=== PATIENT | female | born 1940 | race Caucasian/White ===

== ENCOUNTER 2019-01-22 19:18 | Inpatient (IN) | payer MEDICARE ==
[~2019-01-22] VITALS: Ht 167.6 cm; Wt 104.9 kg
--- NOTE | 2019-01-22 19:46 | PHYS DOC ---
Past History Past Medical History: Anxiety, Dementia, Depression, GERD, High Cholesterol, Hypertension, Stroke Smoking: Non-smoker Alcohol Use: None Drug Use: None Adult General Chief Complaint Chief Complaint: MEDICAL CLEARANCE HPI HPI Patient is a 78-year-old female brought in for clearance for [facility]. She has been having verbal outbursts, vulgar, disruptive to the unit. She is throwing water at another resident where she resides. She is resistive to care at times. She has been treated with increasing Seroquel and adjusting medications but this has failed to achieve desired outcomes. History is limited from the patient due to her history of dementia.[] Review of Systems Review of Systems Constitutional: Denies fever or chills [] Eyes: Denies change in visual acuity, redness, or eye pain [] HENT: Denies nasal congestion or sore throat [] Respiratory: Denies cough or shortness of breath [] Cardiovascular: No chest pain or palpitations[] GI: Denies abdominal pain, nausea, vomiting, bloody stools or diarrhea [] : Denies dysuria or hematuria [] Musculoskeletal: Denies back pain or joint pain [] Integument: Denies rash or skin lesions [] Neurologic: Denies headache, focal weakness or sensory changes [] Endocrine: Denies polyuria or polydipsia [] All other systems were reviewed and found to be within normal limits, except as documented in this note. Physical Exam Physical Exam Constitutional: Well developed, well nourished, no acute distress, non-toxic appearance. [] HENT: Normocephalic, atraumatic, bilateral external ears normal, oropharynx moist, no oral exudates, nose normal. [] Eyes: PERRLA, EOMI, conjunctiva normal, no discharge. [] Neck: Normal range of motion, no tenderness, supple, no stridor. [] Cardiovascular:Heart rate regular rhythm, no murmur [] Lungs & Thorax: Bilateral breath sounds clear to auscultation [] Abdomen: Bowel sounds normal, soft, no tenderness, no masses, no pulsatile masses. [] Skin: Warm, dry, no erythema, no rash. [] Back: No tenderness, no CVA tenderness. [] Extremities: No tenderness, no cyanosis, no clubbing, ROM intact, no edema. [] Neurologic: Alert and oriented X 2person and place, hospital, normal motor function, normal sensory function, no focal deficits noted. [] Psychologic: Affect flat, mood normal. [] Current Patient Data Vital Signs Vital Signs Date Time Temp Pulse Resp B/P (MAP) Pulse Ox O2 Delivery O2 Flow Rate FiO2 01/22/19 19:18 97.7 89 22 159/100 (119) 95 Room Air EKG EKG EKG shows a sinus rhythm at 86 bpm, left axis, no ST elevation. QTC of 465 ms. Interpreted by me at 1949. No old EKG available for comparison.[] Radiology/Procedures Radiology/Procedures [] Course & Med Decision Making Course & Med Decision Making Pertinent Labs and Imaging studies reviewed. (See chart for details) ED course: Patient arrived, was placed in bed, and tolerated exam well. Laboratory testing was obtained. She remained in good condition while in the emergency department. After return of laboratory testing, findings and plan were discussed with patient and family. All questions were answered. She was given initial dose of antibiotics for urinary tract infection. She was admitted in improved condition to [facility]. Medical decision making: Patient with change in behavior that is failing outpatient treatment. She appears to be medically cleared for [facility]. She also has evidence of urinary tract infection which is being addresse d with oral medication. She is nontoxic. No evidence of systemic infection.[] Dragon Disclaimer Dragon Disclaimer This electronic medical record was generated, in whole or in part, using a voice recognition dictation system. Departure Departure: Impression: Primary Impression: Neurocognitive disorder Additional Impressions: Depression Urinary tract infection Disposition: ADMITTED INPATIENT Admitting Physician: Other Condition: IMPROVED Referrals: SOFIA SALMON (PCP) Problem Qualifiers Additional Impressions: Depression Depression Type: major depressive disorder Major depression recurrence: unspecified whether recurrent Active/Remission status: remission status unspecified Qualified Codes: F32.9 - Major depressive disorder, single episode, unspecified Urinary tract infection Urinary tract infection type: site unspecified Hematuria presence: without hematuria Qualified Codes: N39.0 - Urinary tract infection, site not specified MADIHA YOUNG DO Jan 22, 2019 19:46
[2019-01-22 19:55] LABS: BASO % 1 % (0-3); EOS # 0.1 x10^3/uL (0.0-0.7); EOS % 2 % (0-3); HEMATOCRIT 38.8 % (36.0-47.0); HEMOGLOBIN 12.9 g/dL (12.0-15.5); LYMPH # 1.5 x10^3/uL (1.0-4.8); LYMPH % 34 % (24-48); MEAN CORPUSCULAR HEMOGLOBIN 30 pg (25-35); MEAN CORPUSCULAR HGB CONC 33 g/dL (31-37); MEAN CORPUSCULAR VOLUME 90 fL (79-100); MONO # 0.5 x10^3/uL (0.0-1.1); MONO % 11 % (0-9); NEUT # 2.3 x10^3uL (1.8-7.7); NEUT % 52 % (31-73); PLATELET COUNT 185 x10^3/uL (140-400); RED BLOOD COUNT 4.32 x10^6/uL (3.50-5.40); WHITE BLOOD COUNT 4.4 x10^3/uL (4.0-11.0)
[2019-01-22 20:12] LABS: ALBUMIN 3.7 g/dL (3.4-5.0); ALBUMIN/GLOBULIN RATIO 0.9 (1.0-1.7); CREATININE 1.3 mg/dL (0.6-1.0); GFR 39.6; MAGNESIUM 1.8 mg/dL (1.8-2.4); POTASSIUM 4.2 mmol/L (3.5-5.1); TOTAL BILIRUBIN 0.5 mg/dL (0.2-1.0)
[2019-01-22 20:31] LABS: BILIRUBIN,URINE NEG (NEG); CLARITY,URINE CLEAR; COLOR,URINE YELLOW; GLUCOSE,URINE NEG (NEG); NITRITE,URINE NEG (NEG); RBC,URINE OCC /HPF (0-2); UROBILINOGEN,URINE 0.2 mg/dL (0.2 mg/dL)
[2019-01-22 20:32] LABS: BACTERIA,URINE FEW /HPF (0-FEW); SQUAMOUS EPITHELIAL CELL,UR OCC /LPF
[2019-01-22] MEDS ORDERED: SMZ/TMP 800/160MG TABLET. PO ONE ×2 (20:42→21:15)
[2019-01-22] MEDS ORDERED: LOPE2TAB27 PO (23:06)
[2019-01-22] MEDS ORDERED: FLUO15CR2 TP (23:06)
[2019-01-22] MEDS ORDERED: CALC500T31 PO (23:06)
[2019-01-22] MEDS ORDERED: CLON1TAB11 PO (23:06)
[2019-01-22] MEDS ORDERED: ASPI1CPM9 PO (23:06)
[2019-01-22] MEDS ORDERED: ACET500T33 PO (23:06)
[2019-01-22] MEDS ORDERED: CARV25TA PO (23:06)
[2019-01-22] MEDS ORDERED: GUAI-295 PO (23:06)
[2019-01-22] MEDS ORDERED: OLAN5TAB9 PO (23:06)
[2019-01-22] MEDS ORDERED: LORA0.5T96 PO (23:06)
[2019-01-22] MEDS ORDERED: ACET325T9 PO (23:06)
[2019-01-22] MEDS ORDERED: ALBU2.5V8 IH (23:06)
[2019-01-22] MEDS ORDERED: HYDR200T71 PO (23:06)
[2019-01-22] MEDS ORDERED: CLON0.5T4 PO (23:06)
[2019-01-22] MEDS ORDERED: SULF1TAB23 PO (23:06)
[2019-01-22] MEDS ORDERED: BENZ100C PO (23:06)
[2019-01-22] MEDS ORDERED: SIMV40TA18 PO (23:06)
[2019-01-22] MEDS ORDERED: PANT40TA3 PO (23:06)
[2019-01-22] MEDS ORDERED: QUET200T4 PO (23:06)
[2019-01-22] MEDS ORDERED: GUAI600T47 PO (23:06)
[2019-01-22] MEDS ORDERED: CYAN50008 PO (23:06)
[2019-01-22] MEDS ORDERED: LISI-334 PO (23:06)
[2019-01-22] MEDS ORDERED: MAGN2400 PO (23:06)
[2019-01-22] MEDS ORDERED: AMLO5TAB10 PO (23:06)
[2019-01-22] MEDS ORDERED: ALBUTEROL SULFATE 2.5 MG/3 ML NEBU. IH PRN (23:15)
[2019-01-22] MEDS ORDERED: ACETAMINOPHEN 325 MG TABLET PO PRN (23:15)
[2019-01-22] MEDS ORDERED: LORazepam 0.5 MG TABLET PO PRN (23:15)
[2019-01-22] MEDS ORDERED: OLANZapine 5 MG TABLET PO PRN (23:15)
[2019-01-22] MEDS ORDERED: BENZONATATE 100 MG CAPSULE. PO PRN (23:15)
[2019-01-22] MEDS ORDERED: CALCIUM CARBONATE 500 MG TAB.CHEW PO PRN (23:15)
[2019-01-22] MEDS ORDERED: METHYL SALICYLATE/MENTHOL TOPICAL OINTMENT 57GM TUBE. TP PRN (23:15)
[2019-01-22] MEDS ORDERED: MAGNESIUM HYDROXIDE 2,400 MG/30 ML ORAL.SUSP. PO PRN (23:15)
[2019-01-22] MEDS ORDERED: MAG HYDROX/AL HYDROX/SIMETH 30 ML ORAL.SUSP PO PRN (23:15)
[2019-01-22] MEDS ORDERED: LOPERAMIDE 2 MG CAPSULE PO PRN (23:30)
[2019-01-22] MEDS ORDERED: C.DIFF MED SCREEN BY RX. MC ONE (23:30)
[2019-01-22] MEDS ORDERED: guaiFENesin/CODEINE 100mg/10mg 5 ML LIQUID PO PRN (23:30)
--- NOTE | 2019-01-22 23:34 | NUR ---
Admission Note with Justification for Admission to [facility] Patient admitted to [facility] for protective oversight for emergency stabilization of acute psychiatric crisis. Pt admitted from: LT Facility Mode of arrival: EMS Accompanied By: EMS/Family Precipitating behaviors that initiated intake and admission:Pt having verbal outbursts, vulgar disruptive to the unit, throwing water at a peer, restive to cares, agitated combative, threatening. Description of failure of out patient attempts at stabilization in previous setting list behavior and medication trials: Med adjustments were attempted but not successful. Behaviors and assessment findings upon admission: Angry, agitated, confused, demanding, rude, belligerent tells me to get out of her face and LEAVE her alone. Swats at staff that attempt to help her. Plan: Admit for protective oversight for adjustment and stabilization of medications, behaviors and mood. Intense treatment regimen including groups, medication adjustments, therapy, consistent regimen for ADL's, self care, and sleep hygiene. Daily monitoring by Inpatient staff, Psychiatry, and Medical Physician.
[2019-01-22 23:38] VITALS: BP 156/86
--- NOTE | 2019-01-23 03:59 | EKG ---
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
[2019-01-23 06:08] VITALS: BP 144/85
[2019-01-23] MEDS: CARVEDILOL 12.5 MG TABLET PO SCH ×2 (08:13→17:07)
[2019-01-23] MEDS: clonazePAM 1 MG TABLET PO SCH ×2 (08:13→13:09)
[2019-01-23] MEDS: ACETAMINOPHEN 500 MG TABLET PO SCH ×3 (08:13→20:39)
[2019-01-23] MEDS: PANTOPRAZOLE 40 MG TABLET. PO SCH (08:13)
[2019-01-23] MEDS: ASPIRIN/DIPYRIDAMOLE 200/25MG CAP.ER.12H PO SCH ×2 (08:13→20:39)
[2019-01-23] MEDS: LACTOBACILLUS RHAMNOSUS GG 1 CAPSULE. PO SCH ×2 (08:14→20:39)
[2019-01-23] MEDS: CYANOCOBALAMIN (VITAMIN B-12) 1,000 MCG TABLET. PO SCH (08:14)
[2019-01-23] MEDS: LISINOPRIL 20 MG TABLET PO SCH (08:14)
[2019-01-23] MEDS: QUEtiapine 100 MG TABLET. PO SCH ×3 (08:14→20:39)
[2019-01-23] MEDS: amLODIPine BESYLATE 5 MG TABLET PO SCH (08:15)
[2019-01-23] MEDS: HYDROXYCHLOROQUINE 200 MG TABLET PO SCH (08:19)
[2019-01-23] MEDS ORDERED: SMZ/TMP 400/80MG TABLET. PO SCH (09:00)
--- NOTE | 2019-01-23 09:00 | NUR ---
Pharmacy Medication Review S: Consulted for medication review re: C.diff Risk Assessment score of 5 O: MISTY BAPTISTE is a 78 year old with: Previous C.diff infection: No Previous hospitalization: No Recent antibiotics: Within 30 days Use of gastric acid suppressor: Yes Transfer from [place]/[facility]: Yes Current antibiotic regimen: SEPTRA DS- PHARMACY ADDED THE STOP DATE OF 01/27 THAT WAS IN THE [place] CHART Current acid suppression regimen: PROTONIX 40MG DAILY A: Patient has been identified as having risk factors for C.diff infection as noted above. P: Antibiotic Regimen recommendation made: Probiotic ordered: LACTOBACILLUS BID PPI changed to [id number]: NOTE LEFT ON UNIT FOR DR OCHOA TO REVIEW AND PHARMACY RECOMMENDS PEPCID 20MG DAILY OR HS. AILYN TORRES, 01/23/19 0901
[2019-01-23] MEDS: SMZ/TMP 800/160MG TABLET. PO SCH ×2 (12:20→20:39)
[2019-01-23 16:10] VITALS: BP 120/67
--- NOTE | 2019-01-23 17:02 | NUR ---
Patient is alert and oriented x 3, able to make wants and needs known and able to verbalize understanding of others. Patient has been cooperative with staff in all cares and medication administrations this shift. No negative moods or behaviors noted. Patient is eating dinner in dining room at this time.
[2019-01-23 20:07] LABS: THYROXINE 5.5 ug/dL (4.5-12.0)
--- NOTE | 2019-01-23 20:34 | PDOC ---
Exam Note: Wayne Note: Please also refer to the separate dictated note~for this date of service dictated separately. Discussed the patient with Nursing staff reviewed the chart.~Reviewed interim history and current functioning. Reviewed vital signs,~Labs/ Radiology~and current medications noted below. Continue current treatment with the changes noted in the dictated addendum note Assessment: Vital Signs/I&O: Vital Signs Date Time Temp Pulse Resp B/P (MAP) Pulse Ox O2 Delivery O2 Flow Rate FiO2 01/23/19 17:07 75 120/67 01/23/19 16:10 97.7 16 93 01/22/19 20:53 Room Air I & O 01/22/19 01/22/19 01/23/19 15:00 23:00 07:00 Intake Total 0 ml Balance 0 ml Current Medications: Meds: Current Medications Medications (Trade) Dose Ordered Sig/Kong Route PRN Reason Start Time Stop Time Status Last Admin Dose Admin Trimethoprim/ Sulfamethoxazole (Bactrim Ds) 1 tab 1X ONCE PO 01/22/19 21:15 01/22/19 21:16 DC 01/22/19 20:43 Acetaminophen (Tylenol) 500 mg TID PO 01/23/19 09:00 01/23/19 13:09 Amlodipine Besylate (Norvasc) 5 mg DAILY PO 01/23/19 09:00 01/23/19 08:15 Dipyridamole/ Aspirin (Aggrenox) 1 cap BID PO 01/23/19 09:00 01/23/19 08:13 Clonazepam (KlonoPIN) 1 mg BID92 PO 01/23/19 09:00 01/23/19 13:09 Lisinopril (Prinivil) 20 mg DAILY PO 01/23/19 09:00 01/23/19 08:14 Pantoprazole Sodium (Protonix) 40 mg DAILYAC PO 01/23/19 07:30 01/23/19 08:13 Carvedilol (Coreg) 12.5 mg BIDWMEALS PO 01/23/19 08:00 01/23/19 17:07 Cyanocobalamin (Vitamin B-12) 500 mcg DAILY PO 01/23/19 09:00 01/23/19 08:14 Quetiapine Fumarate (SEROquel) 200 mg TID PO 01/23/19 09:00 01/23/19 13:09 Lactobacillus Rhamnosus (Culturelle) 1 cap BID PO 01/23/19 09:00 01/23/19 08:14 Trimethoprim/ Sulfamethoxazole (Bactrim Ds) 1 tab BID PO 01/23/19 09:00 01/27/19 21:01 01/23/19 12:20 I have reviewed the current psychotropics carefully including drug interactions. Risk benefit ratio favors no change other than as noted in my dictated progress note. JESSEE WALL MD Jan 23, 2019 20:34
[2019-01-23 20:48] LABS: THYROID STIM HORMONE (TSH) 2.243 uIU/mL (0.358-3.740)
[2019-01-23] MEDS: ATORVASTATIN CALCIUM 20 MG TABLET PO SCH (21:00)
[2019-01-24 00:06] LABS: HEMOGLOBIN A1C 6.8 % (4.8-5.6)
--- NOTE | 2019-01-24 02:03 | NUR ---
Nsg Note: Patient was in day room at time of medication administration and assessments. Patient was calm, cooperative and compliant with cares. Patient was somewhat hypoverbal. No other notable behaviors at this time.
--- NOTE | 2019-01-24 03:22 | CONS ---
DATE OF CONSULTATION: 01/22/2019 REASON FOR CONSULTATION: Medical management. HISTORY OF PRESENT ILLNESS: The patient is a 78-year-old female patient, a resident at [facility] in [place] who was admitted on account of having verbal outbursts, throwing water on peers, valgus statement, resistive to care and agitated, combative, all this in a major neurocognitive disorder. She is here for inpatient psychiatric stabilization. PAST MEDICAL HISTORY: Significant for hypertension, hyperlipidemia, peripheral vascular disease, gastroesophageal reflux disease, osteoarthritis, and cerebrovascular accident. PAST PSYCHIATRIC HISTORY: Significant for dementia as well as anxiety and depression. ALLERGIES: She has no known drug allergies. MEDICATIONS: She is currently on following medications: She is on Bactrim DS 1 tablet twice a day for 7 days, hydroxychloroquine sulfate for Plaquenil 200 mg daily for lupus, albuterol sulfate 2 puffs every 4 hours, simvastatin 40 mg at bedtime. She is on Aggrenox twice a day for CVA prevention, carvedilol 12.5 mg twice a day with meal, amlodipine besylate 5 mg once a day, lisinopril 20 mg once a day, Tylenol 500 mg 3 times a day, Tylenol 650 mg every 6 hours as needed, clonazepam 1 mg twice a day, clonazepam 0.5 mg every 4 hours. She is on olanzapine 5 mg every hour as needed. She is on Seroquel 200 mg 3 times a day, lorazepam 0.5 mg every 8 hours, calcium carbonate 1000 mg once every 4 hours. FAMILY HISTORY: Noncontributory. SOCIAL HISTORY: She is , lives at the [facility]. She has 4 sons and 1 daughter. She does not smoke, drink alcohol or use any recreational drugs. REVIEW OF SYSTEMS: As per history of present illness. PHYSICAL EXAMINATION GENERAL: When I examined her, she was sitting comfortably in her chair, in no apparent respiratory distress, slightly pale, but no jaundice, cyanosis or thyromegaly. No jugular venous distention. No limb edema. VITAL SIGNS: Her heart rate was 80, blood pressure was 144/85, temperature was 97.2, respiratory rate 20, and her oxygen saturation was 95% on room air. HEAD, EYES, EARS, NOSE AND THROAT: Showed normocephalic, atraumatic. NECK: Supple. HEART: Showed normal first and second heart sounds with no gallop, rub or murmur. CHEST: Clear to auscultation, no crepitation or rhonchi. ABDOMEN: Distended, soft, nontender. NEUROLOGIC: She was awake, alert, responding appropriately. All cranial nerves intact. EXTREMITIES: She moves extremities without difficulty. She ambulates with a walker without difficulty. LABORATORY DATA: Showed a white cell count was 4400, hemoglobin 13, hematocrit 39, MCV 90 and platelet count of 185,000 with normal manual differential. Her chemistry showed a serum sodium 139, potassium 4.2, chloride 103, bicarbonate 24, anion gap of 12, BUN 18, creatinine 1.3, estimated GFR was 39 mL per minute. Her glucose 179, calcium was 9. Magnesium was 1.8. Total bilirubin, AST, ALT, alkaline phosphatase were normal. Total protein was 8, albumin was 3.7. Urinalysis showed that the urine was yellow, clear with a pH of 6, specific gravity of 1.030. There was trace of leukocyte esterase, no rbc's, 5-10 wbc's, and very few bacteria. IMPRESSION: In summary, this is a 78-year-old female patient, a resident at [facility] in [place] who was admitted on account of having verbal outburst, throwing freedman on peers, vulgar statement, resistive to care, agitated, combative, all this in a background of major depressive disorder and major neurocognitive disorder. So far medically she seems to be stable. I will obviously follow all the other labs that are still pending and make any necessary recommendation. Thank you, Dr. Duff for allowing me to participate in the care of this patient. ANKUR OCHOA MD DR: MELVI/douglas JOB#: [id number] / [id number]
[2019-01-24 05:42] VITALS: BP 134/81
[2019-01-24] MEDS: CARVEDILOL 12.5 MG TABLET PO SCH ×2 (09:06→17:26)
[2019-01-24] MEDS: PANTOPRAZOLE 40 MG TABLET. PO SCH (09:06)
[2019-01-24] MEDS: CYANOCOBALAMIN (VITAMIN B-12) 1,000 MCG TABLET. PO SCH (09:07)
[2019-01-24] MEDS: ASPIRIN/DIPYRIDAMOLE 200/25MG CAP.ER.12H PO SCH ×2 (09:08→21:12)
[2019-01-24] MEDS: LISINOPRIL 20 MG TABLET PO SCH (09:09)
[2019-01-24] MEDS: SMZ/TMP 800/160MG TABLET. PO SCH ×2 (09:09→21:12)
[2019-01-24] MEDS: LACTOBACILLUS RHAMNOSUS GG 1 CAPSULE. PO SCH ×2 (09:09→21:12)
[2019-01-24] MEDS: HYDROXYCHLOROQUINE 200 MG TABLET PO SCH (09:10)
[2019-01-24] MEDS: clonazePAM 0.5 MG TABLET PO PRN ×2 (09:10→09:12)
[2019-01-24] MEDS: ACETAMINOPHEN 500 MG TABLET PO SCH ×3 (09:11→21:12)
[2019-01-24] MEDS: QUEtiapine 100 MG TABLET. PO SCH ×3 (09:11→21:12)
[2019-01-24] MEDS: amLODIPine BESYLATE 5 MG TABLET PO SCH (09:11)
[2019-01-24] MEDS: clonazePAM 1 MG TABLET PO SCH ×2 (09:17→15:32)
[2019-01-24] MEDS: FLUOCINONIDE/EMOLLIENT 0.05% TOPICAL CREAM 15GM TUBE TP PRN (09:36)
[2019-01-24 15:54] VITALS: BP 106/60
[2019-01-24] MEDS: ATORVASTATIN CALCIUM 20 MG TABLET PO SCH (21:12)
[2019-01-24] MEDS: FAMOTIDINE 20 MG TABLET PO SCH (21:12)
--- NOTE | 2019-01-24 23:00 | NUR ---
Pt sitting calmly in the dayroom this evening. Flat affect and withdrawn. Compliant with whole medications.
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
[2019-01-25 06:10] VITALS: BP 123/70
[2019-01-25] MEDS: SMZ/TMP 800/160MG TABLET. PO SCH ×2 (10:20→20:57)
[2019-01-25] MEDS: LISINOPRIL 20 MG TABLET PO SCH (10:20)
[2019-01-25] MEDS: ASPIRIN/DIPYRIDAMOLE 200/25MG CAP.ER.12H PO SCH ×2 (10:20→20:57)
[2019-01-25] MEDS: SERTRALINE 50 MG TABLET. PO SCH (10:20)
[2019-01-25] MEDS: CYANOCOBALAMIN (VITAMIN B-12) 1,000 MCG TABLET. PO SCH (10:22)
[2019-01-25] MEDS: CARVEDILOL 12.5 MG TABLET PO SCH ×2 (10:24→17:56)
[2019-01-25] MEDS: LACTOBACILLUS RHAMNOSUS GG 1 CAPSULE. PO SCH ×2 (10:24→20:57)
[2019-01-25] MEDS: clonazePAM 1 MG TABLET PO SCH ×2 (10:24→15:12)
[2019-01-25] MEDS: amLODIPine BESYLATE 5 MG TABLET PO SCH (10:25)
[2019-01-25] MEDS: ACETAMINOPHEN 500 MG TABLET PO SCH ×3 (10:25→20:57)
[2019-01-25] MEDS: QUEtiapine 100 MG TABLET. PO SCH ×3 (10:26→20:58)
[2019-01-25] MEDS: FAMOTIDINE 20 MG TABLET PO SCH ×2 (10:26→20:57)
[2019-01-25] MEDS: HYDROXYCHLOROQUINE 200 MG TABLET PO SCH (10:26)
[2019-01-25] MEDS: FLUOCINONIDE/EMOLLIENT 0.05% TOPICAL CREAM 15GM TUBE TP PRN (10:36)
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
[2019-01-25 16:22] VITALS: BP 109/61
[2019-01-25] MEDS: ATORVASTATIN CALCIUM 20 MG TABLET PO SCH (20:57)
--- NOTE | 2019-01-25 22:13 | PDOC ---
Exam Note: Wayne Note: This is a late entry for DOS 01/24/2019. Please also refer to the separate dictated note~for this date of service dictated separately.~Patient seen individually. Discussed the patient with Nursing staff reviewed the chart.~Reviewed interim history and current functioning. Reviewed vital signs,~Labs/ Radiology~and current medications noted below. Continue current treatment with the changes noted in the dictated addendum note Assessment: Vital Signs/I&O: Vital Signs Date Time Temp Pulse Resp B/P (MAP) Pulse Ox O2 Delivery O2 Flow Rate FiO2 01/25/19 17:56 74 109/61 01/25/19 16:22 97.2 20 93 01/24/19 05:42 Room Air I & O 01/24/19 01/24/19 01/25/19 15:00 23:00 07:00 Intake Total 600 ml 240 ml Balance 600 ml 240 ml Current Medications: Meds: Current Medications Medications (Trade) Dose Ordered Sig/Kong Route PRN Reason Start Time Stop Time Status Last Admin Dose Admin Sertraline HCl (Zoloft) 50 mg DAILY PO 01/25/19 09:00 01/25/19 10:20 I have reviewed the current psychotropics carefully including drug interactions. Risk benefit ratio favors no change other than as noted in my dictated progress note. Diagnosis: Problems: (1) Bipolar disorder, unspecified (2) Anxiety disorder, unspecified (3) Major depressive disorder, recurrent, unspecified JESSEE WALL MD Jan 25, 2019 22:13
--- NOTE | 2019-01-25 22:14 | PDOC ---
Exam Note: Wayne Note: Please also refer to the separate dictated note~for this date of service dictated separately.~Patient seen individually. Discussed the patient with Nursing staff reviewed the chart.~Reviewed interim history and current functioning. Reviewed vital signs,~Labs/ Radiology~and current medications noted below. Continue current treatment with the changes noted in the dictated addendum note Assessment: Vital Signs/I&O: Vital Signs Date Time Temp Pulse Resp B/P (MAP) Pulse Ox O2 Delivery O2 Flow Rate FiO2 01/25/19 17:56 74 109/61 01/25/19 16:22 97.2 20 93 01/24/19 05:42 Room Air I & O 01/24/19 01/24/19 01/25/19 15:00 23:00 07:00 Intake Total 600 ml 240 ml Balance 600 ml 240 ml Current Medications: Meds: Current Medications Medications (Trade) Dose Ordered Sig/Kong Route PRN Reason Start Time Stop Time Status Last Admin Dose Admin Sertraline HCl (Zoloft) 50 mg DAILY PO 01/25/19 09:00 01/25/19 10:20 I have reviewed the current psychotropics carefully including drug interactions. Risk benefit ratio favors no change other than as noted in my dictated progress note. Diagnosis: Problems: (1) Major depressive disorder, recurrent, unspecified (2) Bipolar disorder, unspecified (3) Anxiety disorder, unspecified JESSEE WALL MD Jan 25, 2019 22:14
--- NOTE | 2019-01-26 00:06 | NUR ---
Pt withdrawn, sitting calmly by herself in the dayroom. Pt states that she had a great day. Compliant with whole medications.
[2019-01-26 06:02] VITALS: BP 115/70
[2019-01-26] MEDS: LACTOBACILLUS RHAMNOSUS GG 1 CAPSULE. PO SCH ×2 (08:36→21:31)
[2019-01-26] MEDS: SMZ/TMP 800/160MG TABLET. PO SCH ×2 (08:36→21:31)
[2019-01-26] MEDS: CARVEDILOL 12.5 MG TABLET PO SCH ×2 (08:36→17:11)
[2019-01-26] MEDS: ASPIRIN/DIPYRIDAMOLE 200/25MG CAP.ER.12H PO SCH ×2 (08:36→21:31)
[2019-01-26] MEDS: FAMOTIDINE 20 MG TABLET PO SCH ×2 (08:37→21:31)
[2019-01-26] MEDS: LISINOPRIL 20 MG TABLET PO SCH (08:37)
[2019-01-26] MEDS: QUEtiapine 100 MG TABLET. PO SCH ×3 (08:37→21:30)
[2019-01-26] MEDS: HYDROXYCHLOROQUINE 200 MG TABLET PO SCH (08:37)
[2019-01-26] MEDS: ACETAMINOPHEN 500 MG TABLET PO SCH ×3 (08:38→21:30)
[2019-01-26] MEDS: CYANOCOBALAMIN (VITAMIN B-12) 1,000 MCG TABLET. PO SCH (08:38)
[2019-01-26] MEDS: SERTRALINE 50 MG TABLET. PO SCH (08:38)
[2019-01-26] MEDS: clonazePAM 1 MG TABLET PO SCH ×2 (08:40→14:30)
[2019-01-26] MEDS: amLODIPine BESYLATE 5 MG TABLET PO SCH (08:44)
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
--- NOTE | 2019-01-26 11:46 | NUR ---
Call placed to ROMELIA Bourgeois/son, who will be involved in team meeting via phone on 01/29/19.
--- NOTE | 2019-01-26 12:42 | NUR ---
Pt is calm, cooperative, compliant. No agitation, no aggression, no hallucinations, no delusions. She is compliant with her medication and assessment.
[2019-01-26 16:11] VITALS: BP 104/67
--- NOTE | 2019-01-26 20:34 | PDOC ---
Exam Note: Wayne Note: Please also refer to the separate dictated note~for this date of service dictated separately.~Patient seen individually. Discussed the patient with Nursing staff reviewed the chart.~Reviewed interim history and current functioning. Reviewed vital signs,~Labs/ Radiology~and current medications noted below. Continue current treatment with the changes noted in the dictated addendum note Assessment: Vital Signs/I&O: Vital Signs Date Time Temp Pulse Resp B/P (MAP) Pulse Ox O2 Delivery O2 Flow Rate FiO2 01/26/19 17:11 71 104/67 01/26/19 16:11 97.1 18 93 01/24/19 05:42 Room Air I & O 01/25/19 01/25/19 01/26/19 14:59 22:59 06:59 Intake Total 600 ml 600 ml Balance 600 ml 600 ml Current Medications: I have reviewed the current psychotropics carefully including drug interactions. Risk benefit ratio favors no change other than as noted in my dictated progress note. Diagnosis: Problems: (1) Major depressive disorder, recurrent, unspecified (2) Bipolar disorder, unspecified (3) Anxiety disorder, unspecified JESSEE WALL MD Jan 26, 2019 20:34
[2019-01-26] MEDS: ATORVASTATIN CALCIUM 20 MG TABLET PO SCH (21:31)
--- NOTE | 2019-01-26 23:55 | NUR ---
Nursing Note The patient was located in the day room for her medication and assessment. The patient was calm and complaint with her assessment and medication and took her medication whole. The patient is currently sleeping in her room.
--- NOTE | 2019-01-27 04:05 | PN ---
DATE: 01/24/2019 PSYCHIATRIC PROGRESS NOTE This late entry, 01/24/2019, covers elements not covered in my initial note. SUBJECTIVE: I met with the patient evening of 01/24/2019. The patient remains somewhat depressed, anxious, withdrawn, slightly paranoid, but reasonably oriented. REVIEW OF SYSTEMS: No CV, , pulmonary, eye system symptoms on review. MENTAL STATUS EXAM: Reasonably oriented. Speech has some latency, low in volume, coherent, abstraction fair, computation impaired, language function intact. Mood and affect withdrawn. LABORATORY DATA: Reviewed. IMPRESSION: Unchanged from initial note. PLAN: No change from initial note. We have added Zoloft 50 mg a day. Maintain Seroquel, Klonopin, and we may need to taper the Klonopin gradually. MAN Gabriela WALL MD DR: LORENZA/douglas JOB#: [id number] / [id number]
--- NOTE | 2019-01-27 04:27 | PN ---
DATE: 01/25/2019 PSYCHIATRIC PROGRESS NOTE This late entry of 01/25 covers elements not covered in my initial note. SUBJECTIVE: I met with the patient on the evening of 01/25. The patient slept 6-1/4 hours the previous night. She has been flat, withdrawn, somewhat depressed, anxious. REVIEW OF SYSTEMS: No CV, , pulmonary, eye, ENT system symptoms on review. MENTAL STATUS EXAMINATION: Reasonably oriented. Speech moderate latency, often responses monosyllabic. Abstraction fair, computation impaired, language function intact, attention span short. Mood and affect withdrawn. LABORATORY DATA: Reviewed. IMPRESSION: Unchanged from initial note. PLAN: No change from initial note and we will increase Zoloft gradually. JESSEE WALL MD DR: LORENZA/douglas JOB#: [id number] / [id number]
[2019-01-27 06:34] VITALS: BP 105/62
[2019-01-27] MEDS: HYDROXYCHLOROQUINE 200 MG TABLET PO SCH (08:38)
[2019-01-27] MEDS: ASPIRIN/DIPYRIDAMOLE 200/25MG CAP.ER.12H PO SCH ×2 (08:38→20:35)
[2019-01-27] MEDS: CYANOCOBALAMIN (VITAMIN B-12) 1,000 MCG TABLET. PO SCH (08:38)
[2019-01-27] MEDS: LISINOPRIL 20 MG TABLET PO SCH (08:39)
[2019-01-27] MEDS: SERTRALINE 50 MG TABLET. PO SCH (08:39)
[2019-01-27] MEDS: SMZ/TMP 800/160MG TABLET. PO SCH ×2 (08:39→20:35)
[2019-01-27] MEDS: QUEtiapine 100 MG TABLET. PO SCH ×3 (08:40→20:35)
[2019-01-27] MEDS: LACTOBACILLUS RHAMNOSUS GG 1 CAPSULE. PO SCH ×2 (08:40→20:35)
[2019-01-27] MEDS: clonazePAM 1 MG TABLET PO SCH ×2 (08:40→14:00)
[2019-01-27] MEDS: ACETAMINOPHEN 500 MG TABLET PO SCH ×3 (08:40→20:35)
[2019-01-27] MEDS: FAMOTIDINE 20 MG TABLET PO SCH ×2 (08:40→20:35)
[2019-01-27] MEDS: CARVEDILOL 12.5 MG TABLET PO SCH ×2 (08:42→17:08)
[2019-01-27 08:50] VITALS: BP 131/72
[2019-01-27] MEDS: amLODIPine BESYLATE 5 MG TABLET PO SCH (08:52)
--- NOTE | 2019-01-27 15:28 | NUR ---
Nursing note: Pt was in dining room for morning meds and assessment. She was compliant with taking her meds whole and was cooperative with her assessment. She has been in the day room for most of the day and participated in group. Pt has had no behaviors this shift. Will continue to monitor.
[2019-01-27 15:56] VITALS: BP 118/68
[2019-01-27] MEDS: ATORVASTATIN CALCIUM 20 MG TABLET PO SCH (20:35)
--- NOTE | 2019-01-27 20:57 | PDOC ---
Exam Note: Wayne Note: Please also refer to the separate dictated note~for this date of service dictated separately.~Patient seen individually. Discussed the patient with Nursing staff reviewed the chart.~Reviewed interim history and current functioning. Reviewed vital signs,~Labs/ Radiology~and current medications noted below. Continue current treatment with the changes noted in the dictated addendum note Assessment: Vital Signs/I&O: Vital Signs Date Time Temp Pulse Resp B/P (MAP) Pulse Ox O2 Delivery O2 Flow Rate FiO2 01/27/19 17:08 69 118/68 01/27/19 15:56 97.2 16 94 01/24/19 05:42 Room Air I & O 01/26/19 01/26/19 01/27/19 15:00 23:00 07:00 Intake Total 840 ml 240 ml 120 ml Balance 840 ml 240 ml 120 ml Current Medications: I have reviewed the current psychotropics carefully including drug interactions. Risk benefit ratio favors no change other than as noted in my dictated progress note. Diagnosis: Problems: (1) Major depressive disorder, recurrent, unspecified (2) Bipolar disorder, unspecified (3) Anxiety disorder, unspecified JESSEE WALL MD Jan 27, 2019 20:57
--- NOTE | 2019-01-28 04:12 | NUR ---
Nursing Note The patient was calm and cooperative with her medication and assessment. the patient took her medication whole and was appropriate during interactions with this nurse. the patient is currently sleeping in her room.
[2019-01-28 06:04] VITALS: BP 115/62
[2019-01-28 08:00] VITALS: BP 126/80
[2019-01-28] MEDS: QUEtiapine 100 MG TABLET. PO SCH ×3 (08:01→20:49)
[2019-01-28] MEDS: ASPIRIN/DIPYRIDAMOLE 200/25MG CAP.ER.12H PO SCH ×2 (08:01→20:48)
[2019-01-28] MEDS: clonazePAM 1 MG TABLET PO SCH ×2 (08:01→12:32)
[2019-01-28] MEDS: LACTOBACILLUS RHAMNOSUS GG 1 CAPSULE. PO SCH ×2 (08:02→20:48)
[2019-01-28] MEDS: ACETAMINOPHEN 500 MG TABLET PO SCH ×3 (08:02→20:48)
[2019-01-28] MEDS: HYDROXYCHLOROQUINE 200 MG TABLET PO SCH (08:02)
[2019-01-28] MEDS: CYANOCOBALAMIN (VITAMIN B-12) 1,000 MCG TABLET. PO SCH (08:02)
[2019-01-28] MEDS: LISINOPRIL 20 MG TABLET PO SCH (08:02)
[2019-01-28] MEDS: CARVEDILOL 12.5 MG TABLET PO SCH ×2 (08:03→17:31)
[2019-01-28] MEDS: SERTRALINE 50 MG TABLET. PO SCH (08:03)
[2019-01-28] MEDS: amLODIPine BESYLATE 5 MG TABLET PO SCH (08:04)
[2019-01-28] MEDS: FAMOTIDINE 20 MG TABLET PO SCH ×2 (08:04→20:50)
--- NOTE | 2019-01-28 11:14 | NUR ---
Nursing note: Pt was in dining room this morning for meds and assessment. She was compliant with taking her meds whole and was cooperative with her assessment. Pt is currently in the day room and has had no behaviors this shift. Will continue to monitor.
[2019-01-28 16:15] VITALS: BP 120/71
--- NOTE | 2019-01-28 20:37 | PN ---
DATE: 01/26/2019 PSYCHIATRIC PROGRESS NOTE This late entry 01/26/2019 covers elements not covered in my initial note. SUBJECTIVE: I met with the patient evening of 01/26/2019. The patient has been somewhat withdrawn, anxious, has some crackles in her lung, slept 7-1/4 hours previous night, but appears less depressed. No CV, , pulmonary, eye system symptoms on review. She has some dermatitis to cheek area. We will defer to Dr. Smith. REVIEW OF SYSTEMS: No CV, , pulmonary, eye system symptoms on review. MENTAL STATUS EXAM: Oriented reasonably. Speech is coherent, has some latency. Abstraction fair, computation impaired, language function intact, attention span fair. Mood and affect still somewhat dysphoric, but not angry, aggressive. LABORATORY DATA: Reviewed. IMPRESSION: Major depressive disorder, mild cognitive impairment. PLAN: Maintain Klonopin, which has been reduced, Seroquel 200 t.i.d., Ativan, Zyprexa p.r.n., Zoloft 50 mg a day. Adjust further as clinically indicated. JESSEE WALL MD DR: LORENZA/douglas JOB#: [id number] / [id number]
--- NOTE | 2019-01-28 20:45 | PN ---
DATE: 01/27/2019 This late entry 01/27/2019 covers elements not covered in my initial note. SUBJECTIVE: I met with the patient evening of 01/27/2019. Per RUDY Conner, the patient slept 5-1/2 hours previous night. She remains somewhat withdrawn, but more appropriate, compliant with meds and assessment, attending groups. REVIEW OF SYSTEMS: No CV, , pulmonary, eye system symptoms on review. MENTAL STATUS EXAM: Reasonably oriented. Speech is coherent, has some latency. Abstraction fair, computation impaired, language function intact. Mood and affect somewhat withdrawn. LABORATORY DATA: Reviewed. IMPRESSION: Unchanged from initial note. PLAN: No change from initial note. MAN Gabriela WALL MD DR: LORENZA/douglas JOB#: [id number] / [id number]
--- NOTE | 2019-01-28 20:46 | PDOC ---
Exam Note: Wayne Note: Please also refer to the separate dictated note~for this date of service dictated separately.~Patient seen individually. Discussed the patient with Nursing staff reviewed the chart.~Reviewed interim history and current functioning. Reviewed vital signs,~Labs/ Radiology~and current medications noted below. Continue current treatment with the changes noted in the dictated addendum note Assessment: Vital Signs/I&O: Vital Signs Date Time Temp Pulse Resp B/P (MAP) Pulse Ox O2 Delivery O2 Flow Rate FiO2 01/28/19 17:31 73 120/71 01/28/19 16:15 97.6 20 95 01/24/19 05:42 Room Air I & O 01/27/19 01/27/19 01/28/19 15:00 23:00 07:00 Intake Total 840 ml 240 ml 240 ml Balance 840 ml 240 ml 240 ml Current Medications: I have reviewed the current psychotropics carefully including drug interactions. Risk benefit ratio favors no change other than as noted in my dictated progress note. Diagnosis: Problems: (1) Major depressive disorder, recurrent, unspecified (2) Bipolar disorder, unspecified (3) Anxiety disorder, unspecified JESSEE WALL MD Jan 28, 2019 20:46
[2019-01-28] MEDS: ATORVASTATIN CALCIUM 20 MG TABLET PO SCH (20:48)
[2019-01-29 06:19] VITALS: BP 113/63
--- NOTE | 2019-01-29 06:26 | NUR ---
Nursing Note The patient was calm and compliant with her medication and assessment. The patient was appropriate during all interactions with staff and peers. The patient is currently awake in her room.
[2019-01-29 08:00] VITALS: BP 138/80
[2019-01-29] MEDS: ASPIRIN/DIPYRIDAMOLE 200/25MG CAP.ER.12H PO SCH ×2 (08:01→21:00)
[2019-01-29] MEDS: amLODIPine BESYLATE 5 MG TABLET PO SCH (08:02)
[2019-01-29] MEDS: LACTOBACILLUS RHAMNOSUS GG 1 CAPSULE. PO SCH ×2 (08:02→20:34)
[2019-01-29] MEDS: QUEtiapine 100 MG TABLET. PO SCH ×3 (08:02→20:33)
[2019-01-29] MEDS: CYANOCOBALAMIN (VITAMIN B-12) 1,000 MCG TABLET. PO SCH (08:03)
[2019-01-29] MEDS: clonazePAM 1 MG TABLET PO SCH ×2 (08:04→14:22)
[2019-01-29] MEDS: HYDROXYCHLOROQUINE 200 MG TABLET PO SCH (08:04)
[2019-01-29] MEDS: CARVEDILOL 12.5 MG TABLET PO SCH ×2 (08:04→17:08)
[2019-01-29] MEDS: LISINOPRIL 20 MG TABLET PO SCH (08:04)
[2019-01-29] MEDS: FAMOTIDINE 20 MG TABLET PO SCH ×2 (08:05→20:33)
[2019-01-29] MEDS: ACETAMINOPHEN 500 MG TABLET PO SCH ×3 (08:05→20:33)
[2019-01-29] MEDS: SERTRALINE 50 MG TABLET. PO SCH (08:05)
[2019-01-29 08:07] LABS: BASO % 1 % (0-3); EOS # 0.1 x10^3/uL (0.0-0.7); EOS % 3 % (0-3); HEMATOCRIT 36.8 % (36.0-47.0); HEMOGLOBIN 12.1 g/dL (12.0-15.5); LYMPH # 1.3 x10^3/uL (1.0-4.8); LYMPH % 38 % (24-48); MEAN CORPUSCULAR HEMOGLOBIN 30 pg (25-35); MEAN CORPUSCULAR HGB CONC 33 g/dL (31-37); MEAN CORPUSCULAR VOLUME 91 fL (79-100); MONO # 0.4 x10^3/uL (0.0-1.1); MONO % 12 % (0-9); NEUT # 1.6 x10^3uL (1.8-7.7); NEUT % 46 % (31-73); PLATELET COUNT 175 x10^3/uL (140-400); RED BLOOD COUNT 4.06 x10^6/uL (3.50-5.40); RED CELL DISTRIBUTION WIDTH 14.5 % (11.5-14.5); WHITE BLOOD COUNT 3.5 x10^3/uL (4.0-11.0)
[2019-01-29 08:19] LABS: ALBUMIN 3.8 g/dL (3.4-5.0); ALBUMIN/GLOBULIN RATIO 0.9 (1.0-1.7); CALCIUM 9.3 mg/dL (8.5-10.1); CREATININE 1.2 mg/dL (0.6-1.0); GFR 43.4; POTASSIUM 5.4 mmol/L (3.5-5.1); TOTAL BILIRUBIN 0.6 mg/dL (0.2-1.0); TOTAL PROTEIN 8.1 g/dL (6.4-8.2)
--- NOTE | 2019-01-29 09:31 | NUR ---
WEEKLY ACTIVITY THERAPY NOTE Date of Admission: 01/22/2019 Date of AT Assessment: 01/25/2019 Goal aimed: to increase stimulation Initial Goal: Pt. will participate in at least five Activity Therapy groups per week. Weekly progress towards goal: 11 groups since admission Group participation level: moderate to full Weekly highlights: Behaviors observed: more animated as the week has progressed, keeps to self usually, often around day room and peers, working with Physical Therapy Plan: no change to goal Beneficial adaptations: increased participation when sitting in front of hand tufter
--- NOTE | 2019-01-29 11:20 | NUR ---
WEEKLY NOTE: Wandy participated in team meeting and her son Bk listened via phone conference. Wandy is averaging 90% of meal intakes and 8 hours of sleep at night. She has been compliant with medication administration and nursing assessments. Wandy presents with flat affect. Seroquel is being reduced. She has been involved in SW and recreational therapy groups when called upon. Estimated discharge mid next week. Discussed importance of psychiatric out patient follow up and both parties were in agreement to seek this support thru [facility] in [place].
--- NOTE | 2019-01-29 14:44 | NUR ---
Nursing note: Pt was in dining room this morning for her meds and assessment. Pt was compliant with taking her meds whole and was cooperative with her assessment. She has been in the day room for most of the day and has participated in groups. Pt is currently in the day room.
[2019-01-29 16:51] VITALS: BP 132/63
[2019-01-29] MEDS: ATORVASTATIN CALCIUM 20 MG TABLET PO SCH (20:34)
--- NOTE | 2019-01-29 20:46 | PDOC ---
Exam Note: Wayne Note: Please also refer to the separate dictated note~for this date of service dictated separately.~Patient seen individually. Discussed the patient with Nursing staff reviewed the chart.~Reviewed interim history and current functioning. Reviewed vital signs,~Labs/ Radiology~and current medications noted below. Continue current treatment with the changes noted in the dictated addendum note Assessment: Vital Signs/I&O: Vital Signs Date Time Temp Pulse Resp B/P (MAP) Pulse Ox O2 Delivery O2 Flow Rate FiO2 01/29/19 17:08 70 132/63 01/29/19 16:51 98.1 20 94 01/29/19 06:19 Room Air I & O 01/28/19 01/28/19 01/29/19 15:00 23:00 07:00 Intake Total 960 ml 240 ml 240 ml Balance 960 ml 240 ml 240 ml Labs: Laboratory Tests Test 01/29/19 07:57 White Blood Count 3.5 x10^3/uL (4.0-11.0) L Red Blood Count 4.06 x10^6/uL (3.50-5.40) Hemoglobin 12.1 g/dL (12.0-15.5) Hematocrit 36.8 % (36.0-47.0) Mean Corpuscular Volume 91 fL (79-100) Mean Corpuscular Hemoglobin 30 pg (25-35) Mean Corpuscular Hemoglobin Concent 33 g/dL (31-37) Red Cell Distribution Width 14.5 % (11.5-14.5) Platelet Count 175 x10^3/uL (140-400) Neutrophils (%) (Auto) 46 % (31-73) Lymphocytes (%) (Auto) 38 % (24-48) Monocytes (%) (Auto) 12 % (0-9) H Eosinophils (%) (Auto) 3 % (0-3) Basophils (%) (Auto) 1 % (0-3) Neutrophils # (Auto) 1.6 x10^3uL (1.8-7.7) L Lymphocytes # (Auto) 1.3 x10^3/uL (1.0-4.8) Monocytes # (Auto) 0.4 x10^3/uL (0.0-1.1) Eosinophils # (Auto) 0.1 x10^3/uL (0.0-0.7) Basophils # (Auto) 0.0 x10^3/uL (0.0-0.2) Sodium Level 138 mmol/L (136-145) Potassium Level 5.4 mmol/L (3.5-5.1) H Chloride Level 102 mmol/L (98-107) Carbon Dioxide Level 25 mmol/L (21-32) Anion Gap 11 (6-14) Blood Urea Nitrogen 30 mg/dL (7-20) H Creatinine 1.2 mg/dL (0.6-1.0) H Estimated GFR (Cockcroft-Gault) 43.4 BUN/Creatinine Ratio 25 (6-20) H Glucose Level 108 mg/dL (70-99) H Calcium Level 9.3 mg/dL (8.5-10.1) Total Bilirubin 0.6 mg/dL (0.2-1.0) Aspartate Amino Transferase (AST) 20 U/L (15-37) Alanine Aminotransferase (ALT) 19 U/L (14-59) Alkaline Phosphatase 70 U/L (46-116) Total Protein 8.1 g/dL (6.4-8.2) Albumin 3.8 g/dL (3.4-5.0) Albumin/Globulin Ratio 0.9 (1.0-1.7) L Current Medications: Meds: Current Medications Medications (Trade) Dose Ordered Sig/Kong Route PRN Reason Start Time Stop Time Status Last Admin Dose Admin Quetiapine Fumarate (SEROquel) 200 mg [id number] PO 01/29/19 09:00 01/29/19 14:22 Quetiapine Fumarate (SEROquel) 150 mg QHS PO 01/28/19 21:00 01/29/19 20:33 I have reviewed the current psychotropics carefully including drug interactions. Risk benefit ratio favors no change other than as noted in my dictated progress note. Diagnosis: Problems: (1) Major depressive disorder, recurrent, unspecified (2) Bipolar disorder, unspecified (3) Anxiety disorder, unspecified JESSEE WALL MD Jan 29, 2019 20:45
--- NOTE | 2019-01-29 22:02 | NUR ---
Nursing Note Pt pleasant and calm, watching TV in day room. Denies complaints at this time. Med compliant and cooperative.
[2019-01-30 06:30] VITALS: BP 121/76
[2019-01-30] MEDS: ASPIRIN/DIPYRIDAMOLE 200/25MG CAP.ER.12H PO SCH ×2 (08:35→20:00)
[2019-01-30] MEDS: CARVEDILOL 12.5 MG TABLET PO SCH ×2 (08:36→17:16)
[2019-01-30] MEDS: FAMOTIDINE 20 MG TABLET PO SCH ×2 (08:36→20:00)
[2019-01-30] MEDS: LACTOBACILLUS RHAMNOSUS GG 1 CAPSULE. PO SCH ×2 (08:36→20:00)
[2019-01-30] MEDS: clonazePAM 1 MG TABLET PO SCH ×2 (08:36→13:50)
[2019-01-30] MEDS: QUEtiapine 100 MG TABLET. PO SCH ×3 (08:36→20:02)
[2019-01-30] MEDS: amLODIPine BESYLATE 5 MG TABLET PO SCH (08:36)
[2019-01-30] MEDS: HYDROXYCHLOROQUINE 200 MG TABLET PO SCH (08:36)
[2019-01-30] MEDS: ACETAMINOPHEN 500 MG TABLET PO SCH ×3 (08:37→20:00)
[2019-01-30] MEDS: CYANOCOBALAMIN (VITAMIN B-12) 1,000 MCG TABLET. PO SCH (08:37)
[2019-01-30] MEDS: SERTRALINE 50 MG TABLET. PO SCH (08:37)
--- NOTE | 2019-01-30 10:51 | NUR ---
Update provided to LIBORIO Jameson at [facility]. faxed current notes, medication list, and labs for review with tentative discharge date of 02/04/19.
--- NOTE | 2019-01-30 13:07 | PN ---
DATE: 01/28/2019 This late entry 01/28/2019 covers elements not covered in my initial note. SUBJECTIVE: I met with the patient evening of 01/28/2019. The patient slept 6 hours previous night per RUDY Conner. She is compliant with medications, calmer. REVIEW OF SYSTEMS: No CV, , Pulmonary, Eye system symptoms on review. MENTAL STATUS EXAM: Reasonably oriented. Speech is coherent, has some latency. Abstraction fair, computation impaired, language function intact. Mood and affect somewhat withdrawn. No psychotic symptoms noted. LABORATORY DATA: Reviewed. IMPRESSION: Major depressive disorder, recurrent; mild cognitive impairment; anxiety disorder, unspecified. PLAN: On careful review of the patient's psychotropic, she is on Seroquel 200 t.i.d., but there is no evidence of psychotic symptoms or primary psychotic disorder. We will go ahead and attempt a reduction to 200 a.m. and p.m. and 150 at bedtime. Maintain Klonopin unchanged and this is being reduced gradually. Continue Zoloft along with Zyprexa p.r.n. Adjust further as clinically indicated. MAN Gabriela WALL MD DR: LORENZA/douglas JOB#: [id number] / [id number]
[2019-01-30 16:08] VITALS: BP 114/70
--- NOTE | 2019-01-30 16:21 | NUR ---
patient has been calm, compliant, and cooperative this shift. She has spent most of her time in the day room socializing with peers and participating in groups. Will continue to monitor and report to oncoming shift.
[2019-01-30] MEDS: ATORVASTATIN CALCIUM 20 MG TABLET PO SCH (20:00)
--- NOTE | 2019-01-30 20:18 | PN ---
DATE: 01/29/2019 PSYCHIATRIC PROGRESS NOTE This late entry 01/29/2019 covers the elements not covered in my initial note. SUBJECTIVE: I met with the patient in the evening. In the morning, we staffed the patient at a treatment team meeting. Her son, Bk attended the conference. Appetite is 90%, sleeping 8 hours, compliant with medications, somewhat withdrawn. There is no evidence of psychotic symptoms and we reviewed her history at length for the reason for a dosage of Seroquel at about 600 mg a day. Since no clear psychotic symptoms were noted, we will go ahead and taper the Seroquel. REVIEW OF SYSTEMS: No CV, , pulmonary, eye system symptoms on review. MENTAL STATUS EXAM: Reasonably oriented. Speech is coherent, has some latency. Abstraction fair, computation impaired, language function intact. Mood and affect less withdrawn, still somewhat depressed, less anxious. LABORATORY DATA: Reviewed. IMPRESSION: Unchanged from initial note. PLAN: No change from initial note. Taper the Seroquel, Klonopin is also being tapered. Maintain the rest unchanged. JESSEE WALL MD DR: LORENZA/douglas JOB#: [id number] / [id number]
--- NOTE | 2019-01-30 21:02 | PDOC ---
Exam Note: Wayne Note: Please also refer to the separate dictated note~for this date of service dictated separately.~Patient seen individually. Discussed the patient with Nursing staff reviewed the chart.~Reviewed interim history and current functioning. Reviewed vital signs,~Labs/ Radiology~and current medications noted below. Continue current treatment with the changes noted in the dictated addendum note Assessment: Vital Signs/I&O: Vital Signs Date Time Temp Pulse Resp B/P (MAP) Pulse Ox O2 Delivery O2 Flow Rate FiO2 01/30/19 17:16 78 114/70 01/30/19 16:08 98.4 20 96 01/29/19 06:19 Room Air I & O 01/29/19 01/29/19 01/30/19 15:00 23:00 07:00 Intake Total 960 ml 480 ml 240 ml Balance 960 ml 480 ml 240 ml Current Medications: I have reviewed the current psychotropics carefully including drug interactions. Risk benefit ratio favors no change other than as noted in my dictated progress note. Diagnosis: Problems: (1) Major depressive disorder, recurrent, unspecified (2) Bipolar disorder, unspecified (3) Anxiety disorder, unspecified JESSEE WALL MD Jan 30, 2019 21:02
--- NOTE | 2019-01-30 21:55 | NUR ---
Pt sitting quietly in the day room at shift change. Pt calm w/a flat affect, interactive with staff and peer at times. Pt cooperative with assessment and compliant with medications administered whole.
[2019-01-31 05:22] VITALS: BP 123/65
[2019-01-31] MEDS: FAMOTIDINE 20 MG TABLET PO SCH ×2 (08:52→21:08)
[2019-01-31] MEDS: ASPIRIN/DIPYRIDAMOLE 200/25MG CAP.ER.12H PO SCH ×2 (08:52→21:08)
[2019-01-31] MEDS: clonazePAM 1 MG TABLET PO SCH ×2 (08:52→14:09)
[2019-01-31] MEDS: CARVEDILOL 12.5 MG TABLET PO SCH ×2 (08:52→16:13)
[2019-01-31] MEDS: HYDROXYCHLOROQUINE 200 MG TABLET PO SCH (08:52)
[2019-01-31] MEDS: amLODIPine BESYLATE 5 MG TABLET PO SCH (08:52)
[2019-01-31] MEDS: LACTOBACILLUS RHAMNOSUS GG 1 CAPSULE. PO SCH ×2 (08:52→21:07)
[2019-01-31] MEDS: QUEtiapine 100 MG TABLET. PO SCH ×3 (08:53→21:07)
[2019-01-31] MEDS: SERTRALINE 50 MG TABLET. PO SCH (08:53)
[2019-01-31] MEDS: ACETAMINOPHEN 500 MG TABLET PO SCH ×3 (08:53→21:08)
[2019-01-31] MEDS: CYANOCOBALAMIN (VITAMIN B-12) 1,000 MCG TABLET. PO SCH (08:53)
--- NOTE | 2019-01-31 11:47 | NUR ---
She is compliant with her medication and assessment. Pt is calm, cooperative, compliant. No agitation, no aggression, no hallucinations, no delusions. Pt is less withdrawn than earlier in the week.
[2019-01-31 16:03] VITALS: BP 102/63
--- NOTE | 2019-01-31 20:50 | PDOC ---
Exam Note: Wayne Note: Please also refer to the separate dictated note~for this date of service dictated separately.~Patient seen individually. Discussed the patient with Nursing staff reviewed the chart.~Reviewed interim history and current functioning. Reviewed vital signs,~Labs/ Radiology~and current medications noted below. Continue current treatment with the changes noted in the dictated addendum note Assessment: Vital Signs/I&O: Vital Signs Date Time Temp Pulse Resp B/P (MAP) Pulse Ox O2 Delivery O2 Flow Rate FiO2 01/31/19 16:03 97.3 73 16 102/63 (76) 92 01/31/19 05:22 Room Air I & O 01/30/19 01/30/19 01/31/19 14:59 22:59 06:59 Intake Total 600 ml 480 ml Balance 600 ml 480 ml Current Medications: I have reviewed the current psychotropics carefully including drug interactions. Risk benefit ratio favors no change other than as noted in my dictated progress note. Diagnosis: Problems: (1) Major depressive disorder, recurrent, unspecified (2) Bipolar disorder, unspecified (3) Anxiety disorder, unspecified JESSEE WALL MD Jan 31, 2019 20:50
[2019-01-31] MEDS: ATORVASTATIN CALCIUM 20 MG TABLET PO SCH (21:07)
--- NOTE | 2019-02-01 00:04 | NUR ---
Nursing Note Pt pleasant and calm, watching TV in day room. Denies complaints at this time. Med compliant and cooperative.
[2019-02-01] MEDS: LACTOBACILLUS RHAMNOSUS GG 1 CAPSULE. PO SCH ×2 (06:22→17:37)
[2019-02-01] MEDS: clonazePAM 1 MG TABLET PO SCH ×2 (06:22→13:59)
[2019-02-01] MEDS: CARVEDILOL 12.5 MG TABLET PO SCH ×2 (06:23→16:07)
[2019-02-01] MEDS: ASPIRIN/DIPYRIDAMOLE 200/25MG CAP.ER.12H PO SCH ×2 (06:23→17:37)
[2019-02-01] MEDS: FAMOTIDINE 20 MG TABLET PO SCH ×2 (06:23→17:37)
[2019-02-01] MEDS: amLODIPine BESYLATE 5 MG TABLET PO SCH (06:23)
[2019-02-01] MEDS: SERTRALINE 50 MG TABLET. PO SCH (06:23)
[2019-02-01] MEDS: ACETAMINOPHEN 500 MG TABLET PO SCH ×3 (06:23→17:38)
[2019-02-01] MEDS: CYANOCOBALAMIN (VITAMIN B-12) 1,000 MCG TABLET. PO SCH (06:24)
[2019-02-01] MEDS: HYDROXYCHLOROQUINE 200 MG TABLET PO SCH (06:24)
[2019-02-01 06:36] VITALS: BP 104/58
[2019-02-01] MEDS ORDERED: QUEtiapine 50 MG TABLET. PO ONE (06:45)
[2019-02-01] MEDS ORDERED: QUEtiapine 25 MG TABLET. PO SCH (09:00)
--- NOTE | 2019-02-01 11:28 | NUR ---
Pt is less withdrawn than earlier in the week. Pt is calm, cooperative, compliant. She is compliant with her medication and assessment. No agitation, no aggression, no hallucinations, no delusions.
[2019-02-01] MEDS: QUEtiapine 100 MG TABLET. PO SCH ×2 (13:59→17:37)
[2019-02-01 16:14] VITALS: BP 116/76
[2019-02-01] MEDS: ATORVASTATIN CALCIUM 20 MG TABLET PO SCH (17:37)
--- NOTE | 2019-02-01 20:36 | PDOC ---
Exam Note: Wayne Note: Please also refer to the separate dictated note~for this date of service dictated separately.~Patient seen individually. Discussed the patient with Nursing staff reviewed the chart.~Reviewed interim history and current functioning. Reviewed vital signs,~Labs/ Radiology~and current medications noted below. Continue current treatment with the changes noted in the dictated addendum note Assessment: Vital Signs/I&O: Vital Signs Date Time Temp Pulse Resp B/P (MAP) Pulse Ox O2 Delivery O2 Flow Rate FiO2 02/01/19 16:14 97.6 85 20 116/76 (89) 98 01/31/19 05:22 Room Air I & O 01/31/19 01/31/19 02/01/19 15:00 23:00 07:00 Intake Total 840 ml 460 ml Balance 840 ml 460 ml Current Medications: Meds: Current Medications Medications (Trade) Dose Ordered Sig/Kong Route PRN Reason Start Time Stop Time Status Last Admin Dose Admin Quetiapine Fumarate (SEROquel) 200 mg 1400 PO 02/01/19 14:00 02/01/19 13:59 Quetiapine Fumarate (SEROquel) 150 mg 1X ONCE PO 02/01/19 06:45 02/01/19 06:46 DC 02/01/19 08:13 I have reviewed the current psychotropics carefully including drug interactions. Risk benefit ratio favors no change other than as noted in my dictated progress note. Diagnosis: Problems: (1) Major depressive disorder, recurrent, unspecified (2) Bipolar disorder, unspecified (3) Anxiety disorder, unspecified JESSEE WALL MD Feb 01, 2019 20:36
--- NOTE | 2019-02-01 20:41 | NUR ---
Pt sitting quietly in the day room at shift change. Pt calm with a flat affect but interactive when approached. Pt cooperative with assessment and compliant with medications administered whole.
--- NOTE | 2019-02-01 23:40 | PN ---
DATE: 01/30/2019 PSYCHIATRIC PROGRESS NOTE This late entry 01/30/2019 covers elements not covered in my initial note. SUBJECTIVE: I met with the patient evening of 01/30/2019. Per RUDY Palma, the patient slept 8 hours previous night. She is tolerating the reduction of Seroquel with no overt psychotic symptoms. REVIEW OF SYSTEMS: No CV, , pulmonary, eye, ENT system symptoms on review. MENTAL STATUS EXAMINATION: Reasonably oriented. Speech has some latency, coherent. Abstraction fair, computation impaired, language function intact, attention span short. Mood and affect still withdrawn, but improved. No suicidal or homicidal ideation. LABORATORY DATA: Reviewed. IMPRESSION: Unchanged from initial note. PLAN: No change from initial note. MAN Gabriela WALL MD DR: LORENZA/douglas JOB#: [id number] / [id number]
--- NOTE | 2019-02-01 23:51 | PN ---
DATE: 01/31/2019 PSYCHIATRIC PROGRESS NOTE This late entry 01/31/2019 covers elements not covered in my initial note. SUBJECTIVE: I met with the patient evening of 01/31/2019. The patient slept 7 hours previous night. She has been flat, somewhat withdrawn, but no psychotic symptoms despite reduction of Seroquel so far. REVIEW OF SYSTEMS: No CV, , pulmonary, eye system symptoms on review. MENTAL STATUS EXAM: Reasonably oriented. Speech is coherent, has some latency, often responses monosyllabic. Abstraction fair, computation impaired, language function intact. Mood and affect is withdrawn. LABORATORY DATA: Reviewed. IMPRESSION: Unchanged from initial note. PLAN: Reduce the 0900 Seroquel from 200 mg down to 150 mg, maintain 200 mg at 1400, 150 mg at bedtime. Rest unchanged for now. MAN Gabriela WALL MD DR: LORENZA/douglas JOB#: [id number] / [id number]
[2019-02-02 05:53] VITALS: BP 131/74
[2019-02-02] MEDS: amLODIPine BESYLATE 5 MG TABLET PO SCH (08:19)
[2019-02-02] MEDS: HYDROXYCHLOROQUINE 200 MG TABLET PO SCH (08:20)
[2019-02-02] MEDS: CYANOCOBALAMIN (VITAMIN B-12) 1,000 MCG TABLET. PO SCH (08:20)
[2019-02-02] MEDS: ACETAMINOPHEN 500 MG TABLET PO SCH ×3 (08:20→20:31)
[2019-02-02] MEDS: FAMOTIDINE 20 MG TABLET PO SCH ×2 (08:20→20:32)
[2019-02-02] MEDS: SERTRALINE 50 MG TABLET. PO SCH (08:21)
[2019-02-02] MEDS: CARVEDILOL 12.5 MG TABLET PO SCH ×2 (08:21→17:29)
[2019-02-02] MEDS: clonazePAM 1 MG TABLET PO SCH ×2 (08:21→13:39)
[2019-02-02] MEDS: LACTOBACILLUS RHAMNOSUS GG 1 CAPSULE. PO SCH ×2 (08:21→20:32)
[2019-02-02] MEDS: ASPIRIN/DIPYRIDAMOLE 200/25MG CAP.ER.12H PO SCH ×2 (08:21→20:32)
[2019-02-02] MEDS: QUEtiapine 50 MG TABLET. PO SCH (08:22)
--- NOTE | 2019-02-02 09:01 | NUR ---
Intake appointment has been scheduled for Wandy at [facility] on 02/17/19 at 9:30am. [facility] will receive out patient medication management and counseling support at [facility]. Addendum: 02/02/19 at 1206 by ZE MONTEJO Received phone call back from Fatou at [facility] indicating she needed to change Wandy's intake appointment to 02/25/19 at 10:30am. Updated d/c worksheet.
--- NOTE | 2019-02-02 10:03 | NUR ---
Left message for xiomara/POCarroll, Bk Mehta, with intent to coordinate discharge planning for 02/04/19. Awaiting return phone call. Addendum: 02/02/19 at 1206 by ZE MONTEJO Received return phone call from Bk, he will transport Pat on 02/04/19 around 2pm.
--- NOTE | 2019-02-02 10:15 | NUR ---
[facility] Social Work Discharge Planning Form Patient Name MICKIE BAPTISTE Admit Date: 01/22/19 DISCHARGE PLAN Discharge Destination: [facility] Care Assessment: N/A Transportation: Discharge on 02/04/19, transportation to be scheduled. Special Instructions/Notes: Mickie has an appointment scheduled with Dr. Wright (PCP) on February 25, 2019 at 1:15pm. Mickie has an intake appointment scheduled at [facility] located at [address] [place] [address] on February 17, 2019 at 9:30am. Bring ID and insurance cards to appointment. DISCHARGE TO FACILITY Facility: [facility] Address: [address] [place] [address] Contact Name: LIBORIO Jameson PCP: Dr. Wright [phone], (fax) Psychiatrist: [facility] [phone], (fax)
[2019-02-02] MEDS: QUEtiapine 100 MG TABLET. PO SCH ×2 (13:39→20:32)
--- NOTE | 2019-02-02 15:10 | NUR ---
Reviewed discharge arrangements with Pat who is looking forward to returning to her [facility] apartment and to be able to see her cat again. Call placed to LIBORIO Jameson at [facility], to confirm that Pat will return there on 02/04/19 around 3-4pm. Informed Gisell that this worker has scheduled Pat f/u appointments with her PCP and [facility] and that these appointments are noted on the discharge instructions.
--- NOTE | 2019-02-02 15:21 | NUR ---
Patient is in the dining room for assessment and medication. Calm, cooperative and compliant. Pleasant demeanor, she is interactive and appropriate with peers and staff. No agitation. Denies SI/HI. Denies pain and discomfort.
[2019-02-02 15:42] VITALS: BP 109/67
[2019-02-02 16:35] LABS: BASO % 1 % (0-3); EOS # 0.1 x10^3/uL (0.0-0.7); EOS % 3 % (0-3); HEMATOCRIT 38.1 % (36.0-47.0); HEMOGLOBIN 12.5 g/dL (12.0-15.5); LYMPH # 1.6 x10^3/uL (1.0-4.8); LYMPH % 34 % (24-48); MEAN CORPUSCULAR HEMOGLOBIN 30 pg (25-35); MEAN CORPUSCULAR HGB CONC 33 g/dL (31-37); MEAN CORPUSCULAR VOLUME 91 fL (79-100); MONO # 0.5 x10^3/uL (0.0-1.1); MONO % 12 % (0-9); NEUT # 2.4 x10^3uL (1.8-7.7); NEUT % 51 % (31-73); PLATELET COUNT 215 x10^3/uL (140-400); RED CELL DISTRIBUTION WIDTH 14.1 % (11.5-14.5); WHITE BLOOD COUNT 4.6 x10^3/uL (4.0-11.0)
[2019-02-02 16:45] LABS: ALBUMIN 3.6 g/dL (3.4-5.0); ALBUMIN/GLOBULIN RATIO 0.9 (1.0-1.7); CALCIUM 9.1 mg/dL (8.5-10.1); CREATININE 0.9 mg/dL (0.6-1.0); GFR 60.6; POTASSIUM 4.6 mmol/L (3.5-5.1); TOTAL BILIRUBIN 0.5 mg/dL (0.2-1.0); TOTAL PROTEIN 7.8 g/dL (6.4-8.2)
--- NOTE | 2019-02-02 20:16 | PDOC ---
Exam Note: Wayne Note: Please also refer to the separate dictated note~for this date of service dictated separately.~Patient seen individually. Discussed the patient with Nursing staff reviewed the chart.~Reviewed interim history and current functioning. Reviewed vital signs,~Labs/ Radiology~and current medications noted below. Continue current treatment with the changes noted in the dictated addendum note Assessment: Vital Signs/I&O: Vital Signs Date Time Temp Pulse Resp B/P (MAP) Pulse Ox O2 Delivery O2 Flow Rate FiO2 02/02/19 17:29 78 109/67 02/02/19 15:42 97.7 18 92 02/02/19 05:53 Room Air I & O 02/01/19 02/01/19 02/02/19 15:00 23:00 07:00 Intake Total 960 ml 480 ml 100 ml Balance 960 ml 480 ml 100 ml Labs: Laboratory Tests Test 02/02/19 16:21 White Blood Count 4.6 x10^3/uL (4.0-11.0) Red Blood Count 4.20 x10^6/uL (3.50-5.40) Hemoglobin 12.5 g/dL (12.0-15.5) Hematocrit 38.1 % (36.0-47.0) Mean Corpuscular Volume 91 fL (79-100) Mean Corpuscular Hemoglobin 30 pg (25-35) Mean Corpuscular Hemoglobin Concent 33 g/dL (31-37) Red Cell Distribution Width 14.1 % (11.5-14.5) Platelet Count 215 x10^3/uL (140-400) Neutrophils (%) (Auto) 51 % (31-73) Lymphocytes (%) (Auto) 34 % (24-48) Monocytes (%) (Auto) 12 % (0-9) H Eosinophils (%) (Auto) 3 % (0-3) Basophils (%) (Auto) 1 % (0-3) Neutrophils # (Auto) 2.4 x10^3uL (1.8-7.7) Lymphocytes # (Auto) 1.6 x10^3/uL (1.0-4.8) Monocytes # (Auto) 0.5 x10^3/uL (0.0-1.1) Eosinophils # (Auto) 0.1 x10^3/uL (0.0-0.7) Basophils # (Auto) 0.0 x10^3/uL (0.0-0.2) Sodium Level 137 mmol/L (136-145) Potassium Level 4.6 mmol/L (3.5-5.1) Chloride Level 100 mmol/L (98-107) Carbon Dioxide Level 26 mmol/L (21-32) Anion Gap 11 (6-14) Blood Urea Nitrogen 25 mg/dL (7-20) H Creatinine 0.9 mg/dL (0.6-1.0) Estimated GFR (Cockcroft-Gault) 60.6 BUN/Creatinine Ratio 28 (6-20) H Glucose Level 129 mg/dL (70-99) H Calcium Level 9.1 mg/dL (8.5-10.1) Total Bilirubin 0.5 mg/dL (0.2-1.0) Aspartate Amino Transferase (AST) 15 U/L (15-37) Alanine Aminotransferase (ALT) 17 U/L (14-59) Alkaline Phosphatase 69 U/L (46-116) Total Protein 7.8 g/dL (6.4-8.2) Albumin 3.6 g/dL (3.4-5.0) Albumin/Globulin Ratio 0.9 (1.0-1.7) L Current Medications: Meds: Current Medications Medications (Trade) Dose Ordered Sig/Kong Route PRN Reason Start Time Stop Time Status Last Admin Dose Admin Quetiapine Fumarate (SEROquel) 150 mg DAILY PO 02/02/19 09:00 02/02/19 08:22 I have reviewed the current psychotropics carefully including drug interactions. Risk benefit ratio favors no change other than as noted in my dictated progress note. Diagnosis: Problems: (1) Major depressive disorder, recurrent, unspecified (2) Bipolar disorder, unspecified (3) Anxiety disorder, unspecified JESSEE WALL MD Feb 02, 2019 20:16
[2019-02-02] MEDS: ATORVASTATIN CALCIUM 20 MG TABLET PO SCH (20:32)
--- NOTE | 2019-02-02 22:45 | NUR ---
Pt sitting in day room at shift change. Pt calm, pleasant, and interactive when approached. Pt cooperative with assessment and compliant with medications administered whole.
--- NOTE | 2019-02-03 00:56 | PN ---
DATE: 02/01/2019 PSYCHIATRIC PROGRESS NOTE This late entry of 02/01/2019 covers the elements not covered in my initial note. SUBJECTIVE: I met with the patient in the evening. The patient slept 7-3/4 hours previous night. Overall, she is doing well, with no overt psychotic symptoms resurfacing despite reduction in Seroquel. REVIEW OF SYSTEMS: No CV, , pulmonary, eye system symptoms on review. MENTAL STATUS EXAM: Reasonably oriented. Speech is coherent, abstraction fair, computation impaired, language function intact, attention span short. Mood and affect somewhat withdrawn, but reasonable. LABORATORY DATA: Reviewed. IMPRESSION: Unchanged from initial note. PLAN: No change from initial note. JESSEE WALL MD DR: LORENZA/douglas JOB#: [id number] / [id number]
[2019-02-03 06:27] VITALS: BP 151/76
[2019-02-03] MEDS: QUEtiapine 50 MG TABLET. PO SCH (08:33)
[2019-02-03] MEDS: ASPIRIN/DIPYRIDAMOLE 200/25MG CAP.ER.12H PO SCH ×2 (08:33→19:37)
[2019-02-03] MEDS: ACETAMINOPHEN 500 MG TABLET PO SCH ×3 (08:33→19:37)
[2019-02-03] MEDS: CYANOCOBALAMIN (VITAMIN B-12) 1,000 MCG TABLET. PO SCH (08:33)
[2019-02-03] MEDS: FAMOTIDINE 20 MG TABLET PO SCH ×2 (08:34→19:37)
[2019-02-03] MEDS: amLODIPine BESYLATE 5 MG TABLET PO SCH (08:34)
[2019-02-03] MEDS: SERTRALINE 50 MG TABLET. PO SCH (08:34)
[2019-02-03] MEDS: CARVEDILOL 12.5 MG TABLET PO SCH ×2 (08:34→17:11)
[2019-02-03] MEDS: LACTOBACILLUS RHAMNOSUS GG 1 CAPSULE. PO SCH ×2 (08:35→19:37)
[2019-02-03] MEDS: HYDROXYCHLOROQUINE 200 MG TABLET PO SCH (08:35)
[2019-02-03] MEDS: clonazePAM 1 MG TABLET PO SCH ×2 (08:44→13:59)
--- NOTE | 2019-02-03 13:30 | NUR ---
Nursing note Patient in the dining room for assessment and medication. Patient was calm, cooperative, and compliant. No agitation. Denies SI/HI. Denies pain and discomfort. Will continue to monitor.
[2019-02-03] MEDS ORDERED: MENT113G6 TP (13:35)
[2019-02-03] MEDS ORDERED: SERT50TA PO (13:37)
[2019-02-03] MEDS ORDERED: OLAN5TAB9 PO (13:39)
[2019-02-03] MEDS ORDERED: QUET50TA5 PO (13:42)
[2019-02-03] MEDS ORDERED: FAMO20TA5 PO (13:47)
[2019-02-03] MEDS ORDERED: METH28OI2 TP (13:50)
[2019-02-03] MEDS ORDERED: MAG355OR39 PO (13:51)
[2019-02-03] MEDS ORDERED: LACT1CAP21 PO (13:52)
[2019-02-03] MEDS: QUEtiapine 100 MG TABLET. PO SCH ×2 (13:59→19:37)
[2019-02-03 16:16] VITALS: BP 108/69
[2019-02-03 17:09] VITALS: BP 128/64
[2019-02-03] MEDS: ATORVASTATIN CALCIUM 20 MG TABLET PO SCH (19:37)
--- NOTE | 2019-02-03 20:01 | PDOC ---
Exam Note: Wayne Note: Please also refer to the separate dictated note~for this date of service dictated separately.~Patient seen individually. Discussed the patient with Nursing staff reviewed the chart.~Reviewed interim history and current functioning. Reviewed vital signs,~Labs/ Radiology~and current medications noted below. Continue current treatment with the changes noted in the dictated addendum note Assessment: Vital Signs/I&O: Vital Signs Date Time Temp Pulse Resp B/P (MAP) Pulse Ox O2 Delivery O2 Flow Rate FiO2 02/03/19 17:11 74 128/64 02/03/19 17:09 18 02/03/19 16:16 97.2 97 02/02/19 05:53 Room Air I & O 02/02/19 02/02/19 02/03/19 15:00 23:00 07:00 Intake Total 720 ml 360 ml 240 ml Balance 720 ml 360 ml 240 ml Current Medications: I have reviewed the current psychotropics carefully including drug interactions. Risk benefit ratio favors no change other than as noted in my dictated progress note. Diagnosis: Problems: (1) Major depressive disorder, recurrent, unspecified (2) Bipolar disorder, unspecified (3) Anxiety disorder, unspecified JESSEE WALL MD Feb 03, 2019 20:01
--- NOTE | 2019-02-03 20:30 | PN ---
DATE: 02/02/2019 PSYCHIATRIC PROGRESS NOTE This late entry of 02/02/2019 covers the elements not covered in my initial note. SUBJECTIVE: I met with the patient in the evening of 02/02/2019. Per RUDY Graham, the patient slept 8 hours previous night. She has been fairly cooperative, no overt psychotic symptoms despite reduction in Seroquel. REVIEW OF SYSTEMS: No CV, , pulmonary, eye, ENT system symptoms on review. MENTAL STATUS EXAM: Reasonably oriented. Speech has some latency, coherent. Abstraction fair, computation impaired, language function intact, attention span short. Mood and affect less withdrawn. LABORATORY DATA: Reviewed. IMPRESSION: Unchanged from initial note. PLAN: No change from initial note. MAN Gabriela WALL MD DR: LORENZA/douglas JOB#: [id number] / [id number]
--- NOTE | 2019-02-03 22:39 | NUR ---
Pt sitting in day room at shift change but retreated to her room shortly thereafter. Pt calm, pleasant, and interactive when approached. Pt cooperative with assessment and compliant with medications administered whole.
[2019-02-04 06:14] VITALS: BP 120/77
[2019-02-04 08:29] VITALS: BP 128/68
[2019-02-04] MEDS: LACTOBACILLUS RHAMNOSUS GG 1 CAPSULE. PO SCH (08:30)
[2019-02-04] MEDS: FAMOTIDINE 20 MG TABLET PO SCH (08:30)
[2019-02-04] MEDS: clonazePAM 1 MG TABLET PO SCH ×2 (08:30→12:33)
[2019-02-04] MEDS: ASPIRIN/DIPYRIDAMOLE 200/25MG CAP.ER.12H PO SCH (08:30)
[2019-02-04] MEDS: HYDROXYCHLOROQUINE 200 MG TABLET PO SCH (08:30)
[2019-02-04] MEDS: SERTRALINE 50 MG TABLET. PO SCH (08:30)
[2019-02-04 08:31] VITALS: BP 128/68
[2019-02-04] MEDS: amLODIPine BESYLATE 5 MG TABLET PO SCH (08:31)
[2019-02-04] MEDS: CARVEDILOL 12.5 MG TABLET PO SCH (08:31)
[2019-02-04] MEDS: ACETAMINOPHEN 500 MG TABLET PO SCH ×2 (08:31→12:33)
[2019-02-04] MEDS: QUEtiapine 50 MG TABLET. PO SCH (08:31)
[2019-02-04] MEDS: CYANOCOBALAMIN (VITAMIN B-12) 1,000 MCG TABLET. PO SCH (08:31)
--- NOTE | 2019-02-04 10:51 | NUR ---
Nursing note: Pt in dining room this morning for meds and assessment. She was compliant with taking her meds whole a few at a time. She was cooperative with her assessment. She was pleasant and interactive when approached. Pt is currently in the day room participating in group.
[2019-02-04] MEDS: QUEtiapine 100 MG TABLET. PO SCH (12:33)
--- NOTE | 2019-02-04 13:03 | NUR ---
Patient was given her scheduled 1400 medications prior to discharge. Discharge scheduled for [id number].
--- NOTE | 2019-02-04 13:40 | NUR ---
Transition Record was faxed to follow-up provider with the following elements: Reason for admission, procedures, tests, principal diagnosis, pending studies, patient instructions, 08/10 contact information for unit, phone number to obtain pending test results, plan for follow-up care, physician follow-up, advanced directive information, and medication list with dose, duration and instructions. This information was included in the following documents: History and physical, lab results, study results, progress notes, social work planning form, DC instruction form, patient visit summary, and medication reconciliation form. Date & time record faxed: 02/04/19 [phone] Record faxed to: [facility] [place] Record discussed with/ report given to: RUDY Gant
--- NOTE | 2019-02-04 19:43 | DS ---
DATE OF DISCHARGE: 02/04/2019 This note covers elements not covered in my initial note. REASON FOR ADMISSION: Please refer to the admission history for details. Briefly, patient is a 78-year-old female referred to us from [facility] by her primary care physician on account of worsening symptoms of depression, anxiety, mood lability. She was having verbal outburst throwing water on peers, making vulgar statements, resistive to care, agitated, combative. She had failed outpatient psychiatric interventions including adjustments in her psychotropics. Behaviors were deemed dangerous and she was referred for inpatient psychiatric stabilization. SIGNIFICANT FINDINGS AND CLINICAL COURSE: Following admission, patient was seen daily individually by myself from a psychiatric standpoint, medical followup with Dr. Smith. The patient was somewhat anxious, restless. Adjustments were made in her psychotropics and she seemed to respond to a combination of Klonopin 1 mg b.i.d., 0.5 mg q. 4 hours p.r.n. anxiety, Seroquel was reduced to 150 mg b.i.d. 200 mg, 1400, Ativan p.r.n., Zyprexa p.r.n., Zoloft 50 mg a day. REVIEW OF SYSTEMS: Prior to discharge on 02/04/2019, no CV, , pulmonary, eye system symptoms on review. No paranoia, psychosis emerging despite reduction in Seroquel. MENTAL STATUS EXAM: Reasonably oriented. Speech has some latency, coherent. Abstraction fair, computation impaired, language function intact. Mood and affect somewhat withdrawn, but improved appropriate. No suicidal or homicidal ideation. No aggression. LABORATORY DATA: Reviewed. FINAL DIAGNOSES: Major depressive disorder, recurrent with history of psychotic features, in partial remission; anxiety disorder, unspecified; impulse control disorder, unspecified; mild cognitive impairment. Rest unchanged from admission. DISCHARGE MEDICATIONS: Please refer to the MRAD. DISCHARGE INSTRUCTIONS: Outpatient psychiatric and medical followup at the facility. Time for discharge day management greater than 30 minutes. MAN Gabriela WALL MD DR: LORENZA/douglas JOB#: [id number] / [id number]
--- NOTE | 2019-02-04 19:49 | PDOC ---
Exam Note: Wayne Note: Please also refer to the separate dictated note~for this date of service dictated separately.~Patient seen individually. Discussed the patient with Nursing staff reviewed the chart.~Reviewed interim history and current functioning. Reviewed vital signs,~Labs/ Radiology~and current medications noted below. Continue current treatment with the changes noted in the dictated addendum note Assessment: Vital Signs/I&O: Vital Signs Date Time Temp Pulse Resp B/P (MAP) Pulse Ox O2 Delivery O2 Flow Rate FiO2 02/04/19 08:31 73 128/68 02/04/19 06:14 97.8 20 93 02/02/19 05:53 Room Air I & O 02/03/19 02/03/19 02/04/19 15:00 23:00 07:00 Intake Total 1200 ml 360 ml Balance 1200 ml 360 ml Current Medications: I have reviewed the current psychotropics carefully including drug interactions. Risk benefit ratio favors no change other than as noted in my dictated progress note. Diagnosis: Problems: (1) Major depressive disorder, recurrent, unspecified (2) Bipolar disorder, unspecified (3) Anxiety disorder, unspecified JESSEE WALL MD Feb 04, 2019 19:49
--- NOTE | 2019-02-05 01:55 | PN ---
DATE: 02/03/2019 This late entry 02/03/2019 covers elements not covered in my initial note. SUBJECTIVE: I met with the patient in the evening. Per RUDY Hirsch, the patient slept 7 hours previous night. She remains somewhat quiet, withdrawn, but no overt psychotic symptoms, resurfacing despite reduction of Seroquel. REVIEW OF SYSTEMS: No CV, , pulmonary, eye system symptoms on review. MENTAL STATUS EXAM: Oriented reasonably. Speech is coherent, has some latency. Abstraction fair, computation impaired, language function intact. Mood and affect somewhat withdrawn. LABORATORY DATA: Reviewed. IMPRESSION: Unchanged from initial note. PLAN: No change from initial note. MAN Gabriela WALL MD DR: LORENZA/douglas JOB#: [id number] / [id number]
== END 2019-02-04 13:46 | disposition short-term general hospital (02) | DRG 885 ==
LOC: ER 19:18 → GEROPSY 21:51
PROVIDERS: ADMIT Psychiatry & Neurology Psychiatry; ATTEND Psychiatry & Neurology Psychiatry
DX: F33.9 Major depressive disorder, recurrent, unspecified (principal); N39.0 Urinary tract infection, site not specified; F41.9 Anxiety disorder, unspecified; E78.00 Pure hypercholesterolemia, unspecified; I10 Essential (primary) hypertension; E78.5 Hyperlipidemia, unspecified; F63.9 Impulse disorder, unspecified; F01.50 Vascular dementia, unspecified severity, without behavioral disturbance, psychotic disturbance, mood disturbance, and anxiety; I73.9 Peripheral vascular disease, unspecified; Z86.73 Personal history of transient ischemic attack (TIA), and cerebral infarction without residual deficits; K21.9 Gastro-esophageal reflux disease without esophagitis; M19.90 Unspecified osteoarthritis, unspecified site; Z79.899 Other long term (current) drug therapy
CPT/HCPCS: 36415; 80053; 80061; 81001; 82306; 82607; 83036; 83540; 83550; 83735; 84436; 84443; 84480; 85025; 86592; 87086; 87186; 93005; 97110; 97116; 97530; 97535; 99285-25